=== PATIENT | male | born 1980 | race Caucasian/White ===

== ENCOUNTER 2021-05-02 18:13 | Emergency (ER) | payer OTHER, SELFPAY ==
--- NOTE | ~2021-05-02 | XR_ITS ---
EXAMINATION: XR foot LT min 3V DATE: 05/02/2021 19:03 INDICATION: Left foot pain TECHNIQUE: Dorsoplantar, lateral, and 2 oblique views of the left foot were obtained. COMPARISON: None. FINDINGS: There is a bimalleolar fracture of the ankle with surrounding soft tissue swelling. There i s no acute fracture, dislocation, or subluxation of the foot. The foot soft tissues are normal. IMPRESSION: 1. . No acute osseous abnormality of the foot. 2. Bimalleolar fracture of the ankle. Reviewed, dictated and finalized at location F. MANAGER
--- NOTE | ~2021-05-02 | XR_ITS ---
EXAMINATION: XR ankle LT min 3V DATE: 05/02/2021 19:03 INDICATION: Left ankle pain, initial encounter TECHNIQUE: Anteroposterior, lateral, mortise, and additional oblique view of the ankle were obtained. COMPARISON: None. FINDINGS: There is an acute, traumatic, closed, oblique fracture of the distal fibula extending to th e level of the tibial plafond. The distal fracture fragment is laterally displaced approximately one cortical width. There is diffuse soft tissue swelling of ankle. There is a transverse fracture of the medial malleolus below the level of the tibial plafond. IMPRESSION: 1. Bimalleolar fracture of the right ankle. Reviewed, dictated and finalized at location F. [employer]
[2021-05-02 18:30] VITALS: BP 152/90; PULSE 83; RESP 18; TEMP 36.2; O2SAT 98
--- NOTE | 2021-05-02 18:40 | ED.LOWEXIN ---
HPI - Extremity Injury (Lower) General Chief Complaint: Extremity Injury, Lower Stated Complaint: LT leg injury Time Seen by Provider: 05/02/21 18:40 Source: patient Mode of arrival: ambulatory History of Present Illness HPI Narrative: 41-year-old white male with a past medical history of left ankle fracture slipped on ice and twisted his left ankle 1 hour ago. Presents with pain and swelling of the left ankle. Unable to place weight. MD complaint: ankle injury Onset (ago): hour(s) ( 1 hour ago) Type of Injury: hyperextension Place: street/outdoors Relieving factors: nothing Exacerbating factors: nothing Context: fall Associated symptoms: snap/pop sensation Treatments prior to arrival: cold therapy Related Data Allergies Allergy/AdvReac Type Severity Reaction Status Date / Time Penicillins Allergy Mild Rash Verified 05/02/21 18:39 Review of Systems Review of Systems: All systems reviewed & are unremarkable except as noted in HPI and below Constitutional: Constitutional: Reports as per HPI Eyes: Eyes: Reports as per HPI and Reports no additional eye complaints ENT: Reports system reviewed and no additional complaints, except as documented Cardiovascular: Cardiovascular: Reports as per HPI and Reports no additional cardiovascular complaints Respiratory: Respiratory: Reports as per HPI and Reports no additional respiratory complaints Gastrointestinal: Gastrointestinal: Reports as per HPI and Reports no additional gastrointestinal complaints Genitourinary: Genitourinary: Reports no additional male genitourinary complaints Musculoskeletal: Comments: left lower foot swelling and pain. ankle pain Integumentary/Breasts: Skin/Breast: Reports system reviewed and no additional complaints, except as docu Neurologic: Reports system reviewed and no additional complaints, except as documented Psychiatric: Psychiatric: Reports no additional psychiatric complaints Endocrine: Endocrine: Reports no additional endocrine complaints Hematologic/Lymphatic: Hematologic/Lymphatic: Reports no additional hematologic/lymphatic complaints Allergic/Immunologic: Allergic/Immunologic: Reports no additional allergic/immunologic complaints [facility] Past Medical History Medical History (Updated 05/02/21 @ 19:32 by Cr Davis MD) Ankle fracture Exam Const: General: no acute distress and alert Orientation/consciousness: patient oriented x3 HENMT: Head: normal to inspection Eyes: General: appearance normal, both eyes and all related structures Conjunctivae: conjunctivae normal Pupils: Equal, round and reactive pupils present EOM: EOMs intact bilaterally Neck: Neck: normal visual inspection and no lymphadenopathy Chest: Chest palpation & inspection: normal inspection of the chest Resp: Effort & Inspection: normal respiratory effort Cardio: Rate: regular rate Rhythm: regular rhythm GI: GI Palp: Yes Soft to palpation : General: Yes no CVA tenderness Testes: Testes normal Back/Spine/Pelvis: Back: no CVA tenderness Skin: General skin exam: normal color Neuro: General: patient oriented x3, moves all extremities, no meningeal signs, no focal motor deficits and CN's II-XI intact bilaterally Extrem: Other: swelling over medial and lateral malleolus of the left foot. Tenderness over the malleoli. Decreased range of motion left ankle. Psych: Mental Status: mental status grossly normal Course Vital Signs Vital signs: Vital Signs Temperature 36.2 C L 05/02/21 18:30 Pulse Rate 83 05/02/21 18:30 Respiratory Rate 18 05/02/21 18:30 Blood Pressure 152/90 H 05/02/21 18:30 Pulse Oximetry 98 05/02/21 18:30 Temperature 36.2 C L 05/02/21 18:30 Pulse Rate 83 05/02/21 18:30 Respiratory Rate 18 05/02/21 18:30 Blood Pressure 152/90 H 05/02/21 18:30 Pulse Oximetry 98 05/02/21 18:30 MDM - Extremity Injury (Lower) MDM Narrative Medical decision making narrative: accidental fall
[2021-05-02] MEDS: HYDROcodone/acetaminophen (*CRX) 5-325 MG TABLET 2 TAB PO (19:48)
--- NOTE | 2021-05-02 20:00 | PC.NURSE ---
reviewed no weight bearing, get crutches & follow up dr venegas wednesday
[2021-05-02 20:02] VITALS: BP 140/88; PULSE 62; RESP 16; TEMP 36.4; O2SAT 98
== END 2021-05-02 20:05 | disposition home or self-care (01) ==
PROVIDERS: Emergency Provider Internal Medicine Critical Care Medicine
DX: S82.842A Displaced bimalleolar fracture of left lower leg, initial encounter for closed fracture (principal); W00.0XXA Fall on same level due to ice and snow, initial encounter
CPT/HCPCS: 73610; 73630; 99284; A9270; L2112

== ENCOUNTER 2022-09-30 07:20 | Outpatient (CLI) | payer OTHER, SELFPAY ==
--- NOTE | ~2022-09-30 | US_ITS ---
EXAMINATION: US soft tissue abdomen DATE: 09/30/2022 07:50 INDICATION: Swelling, mass and lump at the upper mid abdomen TECHNIQUE: Multiple grayscale and Doppler ultrasound images of the midline of the abdomen at the az on of concern were obtained. COMPARISON: None FINDINGS: 5.1 x 5.3 x 1.5 cm ovoid mass which is isoechoic and with similar echotexture to the surrounding subc utaneous fat. No abnormal increased vascular flow within the mass on color Doppler. IMPRESSION: 1. Nonspecific 5.3 x 5.1 x 1.5 cm ovoid subcutaneous mass with appearance consistent with and statist ically most likely to represent a lipoma. Reviewed, dictated and finalized at location A. IMPRESSION: 1. Nonspecific 5.3 x 5.1 x 1.5 cm ovoid subcutaneous mass with appearance consi stent with and statistically most likely to represent a lipoma.
[2022-09-30 08:37] LABS: Cholesterol 199 mg/dL (0-200); HDL Direct 110 mg/dL (40-60); LDL Cholesterol Calculated 84 mg/dL (<130); Triglycerides 27 mg/dL (0-150)
== END 2022-09-30 07:21 | disposition home or self-care (01) ==
LOC: CHSIMG 07:22
PROVIDERS: PCP Family Medicine; Visit Provider Family Medicine
DX: R22.2 Localized swelling, mass and lump, trunk (principal)
CPT/HCPCS: 36415; 76705; 80061

== ENCOUNTER 2023-03-18 13:07 | Outpatient (CLI) | payer OTHER, SELFPAY ==
--- NOTE | ~2023-03-18 | XR_ITS ---
EXAMINATION: XR wrist RT min 3V DATE: 03/18/2023 13:23 INDICATION: Right wrist pain. Injury. TECHNIQUE: 4 views of right wrist were obtained. COMPARISON: None. FINDINGS: Bone alignment is normal. No fracture. Joint spaces are normal. IMPRESSION: 1. Normal right wrist. Reviewed, dictated and finalized at location A. 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 Normal right wrist.
== END 2023-03-18 13:08 | disposition home or self-care (01) ==
LOC: CHSIMG 13:09
PROVIDERS: PCP Family Medicine; Visit Provider Family Medicine
DX: M25.531 Pain in right wrist (principal)
CPT/HCPCS: 73110

== ENCOUNTER 2023-09-23 18:33 | Emergency (ER) | payer OTHER, SELFPAY ==
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
[2023-09-23 18:35] VITALS: BP 134/97; PULSE 91; RESP 20; TEMP 36.3; O2SAT 99
--- NOTE | 2023-09-23 19:00 | PC.NURSE ---
Assumed care. report received from Barbra DALE
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
[2023-09-23] MEDS: TETANUS,DIPHTHERIA,AC PERTUSSIS ADULT 0.5 ML (ADACEL) IM (19:18)
[2023-09-23 20:01] VITALS: BP 128/90; PULSE 88; RESP 18; O2SAT 100
--- NOTE | 2023-10-12 19:10 | PC.NURSE ---
LATE ENTRY: 09/23/23 @ 1835: REMOVED GAUZE THAT PT WORE INTO ED TO VIEW WOUND AND REAPPLIED CLEAN GAUZE WITH COBAN TO CONTROL BLEEDING AT THIS TIME. 09/23/23 @ 1900: REPORT GIVEN TO SUYAPA VILLEGAS FOR RIBBON WINDER.
--- NOTE | 2023-10-12 19:49 | PC.NURSE ---
LATE ENTRY: Splint placed to right hand/wrist for boxers fracture. Splint was placed by Dr Joy with assistance from devi Chew. Patient was discharged with splint and sling to right arm.
== END 2023-09-23 20:01 | disposition home or self-care (01) ==
PROVIDERS: Emergency Provider Emergency Medicine; PCP Family Medicine
DX: S62.306A Unspecified fracture of fifth metacarpal bone, right hand, initial encounter for closed fracture (principal); W22.09XA Striking against other stationary object, initial encounter
CPT/HCPCS: 29125; 73130; 90715; 99284; A4565